=== PATIENT | female | born 1955 | race Caucasian/White ===

== ENCOUNTER 2016-12-22 12:21 | Inpatient (IN) | payer BC ==
[~2016-12-22] VITALS: Ht 165.1 cm; Wt 66.2 kg
--- NOTE | ~2016-12-22 | HP ---
Unit #: [id number] #: [id number] Patient: JAZLYN STEWART [id number] [address] [place], [place] [address] [id number] MR#: [id number] NAME: JAZLYN STEWART ROOM: 479 Age: 61 Sex: F Admission Date: 12/22/2016 : 1955 Attending Physician: Peter Colby III, M.D. Primary Care Physician: Bruce Leong M.D. HISTORY AND PHYSICAL CHIEF COMPLAINT Abdominal pain. HISTORY OF PRESENT ILLNESS This is a 61-year-old lady who has had a 2 day history of right lower quadrant pain that became very severe yesterday and she thought she was gonna . She has had numerous episodes of nausea and vomiting. She has not had any prior episodes of this type of pain. Initially she thought it was gas pain related to her IBS with diarrhea. The pain intensified and she presented to the ER today and a CT scan was done which showed probable perforated appendicitis. PAST SURGICAL HISTORY Significant for total abdominal hysterectomy in and she has had multiple joint surgeries. PAST MEDICAL HISTORY Significant for irritable bowel syndrome. MEDICATIONS Medications include Cymbalta and Lomotil as well as some vitamins. ALLERGIES She has allergies to penicillin and morphine. FAMILY HISTORY Significant for breast cancer, skin cancer and history of sarcoma. She does smoke. She denies any alcohol use. REVIEW OF SYSTEMS Negative for weight loss or jaundice and is otherwise as above. PHYSICAL EXAM VITAL SIGNS: Temperature is 98.3, heart rate is 107, respiratory rate is 18, blood pressure is 134/81. She is in no acute distress. HEENT EXAM: Pupils are equal, reactive to light and accommodation and her extraocular muscles are intact. NECK: Neck is without masses or bruits. LUNGS: Lungs show good breath sounds bilaterally with equal air exchange. CARDIAC EXAM: Shows a regular rate and rhythm without murmur. ABDOMEN: Abdomen is soft, nondistended. She has 3+ tenderness especially in the right lower quadrant with guarding. EXTREMITIES: Without edema or cyanosis. NEUROLOGIC EXAM: She is alert and oriented. There are no focal deficits. Unit #: [id number] #: [id number] Patient: JAZLYN STEWART DIAGNOSTIC STUDIES CT scan showed acute appendicitis and her white count is 19,000. OVERALL IMPRESSION This is a 61-year-old lady who likely has a ruptured acute appendicitis. We discussed proceeding with laparoscopic, possible open, appendectomy. We discussed complications such as bleeding, infection including postop abscess, need for other procedures and she understands that and wishes to proceed. Dictated by Peter Colby III, M.D. VCL/niki TD: 12/23/2016 09:11 JOB #: [id number] HISTORY AND PHYSICAL Page 1 of 1 X Peter Colby III, MD X HISTORY AND PHYSICAL
--- NOTE | ~2016-12-22 | OR ---
Unit #: [id number] #: [id number] Patient: JAZLYN STEWART [id number] [address] [place], [place] [address] [id number] MR#: [id number] NAME: JAZLYN STEWART ROOM: 479 Date of Procedure: 12/22/2016 Admission Date: 12/22/2016 Surgeon: Peter Colby III, M.D. : 1955 Attending Physician: Peter Colby III, M.D. Primary Care Physician: Bruce Leong M.D. OPERATIVE REPORT PREOPERATIVE DIAGNOSIS Acute appendicitis. POSTOPERATIVE DIAGNOSIS Acute ruptured appendicitis involving the distal half of the appendix. PROCEDURE PERFORMED Laparoscopic appendectomy. ANESTHESIA General. SPECIMENS Appendix to Pathology. COMPLICATIONS None apparent. ESTIMATED BLOOD LOSS Minimal. DRAINS One flat Timothy-Suggs drain was placed in the right lower quadrant. INDICATIONS FOR PROCEDURE This is a 61-year-old lady, who presented with 2-day history of right lower quadrant pain and findings consistent with acute appendicitis, probable perforation. She had a leukocytosis of 19,000. She is here today for laparoscopic appendectomy. DESCRIPTION OF PROCEDURE After consent was obtained, the patient was brought to the operating room and placed in the supine position. General anesthetic was administered. Her abdomen was prepped and draped in standard surgical fashion. I made a 1-cm incision just above the umbilicus. I dissected down and elevated the fascia between 2 Elder clamps. I used a Veress needle to obtain CO2 pneumoperitoneum. Next, a 5-mm trocar was placed in that location safely. I then under direct visualization placed a 12-mm port in the right lateral abdomen and a 5-mm port in the suprapubic region. She had a walled off area of her right lateral colon. As I unroofed this, there was some purulent material. The distal appendix was friable with evidence of perforation. I was able to trace this back to the origin of the appendix Unit #: [id number] #: [id number] Patient: JAZLYN STEWART off the cecum and this was relatively uninflamed. I was able to create a window at the base of the appendix and the mesoappendix. I fired a blue load of the VICENTA stapler across the base of the appendix and then was able to mobilize the mesenteric going to the appendix and afterward I could fire a white load across that. I then placed the specimen into an EndoCatch bag. It was retrieved through the right lateral port incision without dilatation of the fascia. I then used a 4x4 to mop up the murky material in the right lower quadrant. I then suctioned out all that I could see and then irrigated with 2 L of saline. At the end of the case, I placed a flat Timothy-Suggs drain in the right lower quadrant and brought it out through the suprapubic incision. I had excellent hemostasis and all needle, sponge, and instrument counts were correct x2. I removed all the trocars and released the pneumoperitoneum. All the incisions were injected with 0.25% plain Marcaine. I reapproximated the skin edges with interrupted 4-0 Vicryl subcuticular suture. Steri-Strips were then applied. The patient tolerated the procedure without any problems and returned to the recovery room in stable condition. Dictated by... Peter Colby III, M.D. VCL/lauryn TD: 12/23/2016 15:07 JOB #: [id number] CC: Mary Tesfaye M.D. OPERATIVE REPORT Page 1 of 1 X Peter Colby III, MD X PROCEDURE OPERATIVE NOTE
--- NOTE | ~2016-12-22 | DS ---
Unit #: [id number] #: [id number] Patient: JAZLYN STEWART [id number] [address] [place], [place] [address] [id number] MR#: [id number] NAME: JAZLYN STEWART ROOM: 47 Age: 61 Sex: F Admission Date: 12/22/2016 : 1955 Discharge Date: 12/25/2016 Attending Physician: Peter Colby III, M.D. Primary Care Physician: Bruce Leong M.D. DISCHARGE SUMMARY PRINCIPAL DIAGNOSIS Acute appendicitis. OPERATIVE PROCEDURE Laparoscopic appendectomy. DISCHARGE INSTRUCTIONS No heavy lifting for the next two weeks and no driving or the next five days. Keep incision dry for 24 hours. A prescription for [place] and Phenergan given, followed by Dr. Colby in 7-10 days. CHIEF COMPLAINT/HISTORY OF PRESENT ILLNESS Patient is a 61-year-old white female who presents with right lower quadrant pain. She was found on CT to have changes consistent with acute appendicitis. For complete history and physical please refer to the chart. HOSPITAL COURSE The patient was admitted and started on IV fluids and IV antibiotics. She was taken to the operating room where laparoscopic appendectomy was performed. The patient had some perforation. On postop day #3 she was awake and alert, afebrile, vital signs stable. Minimal output through her drain, which was serosanguineous. Her drain was discontinued and she was discharged home in satisfactory condition. She will be followed with Dr. Colby in 7 to 10 days. Dictated by... Archie Berger/vern TD: 12/27/2016 06:36 JOB #: [id number] CC: [facility] Mary Tesfaye M.D. Unit #: [id number] #: [id number] Patient: JAZLYN STEWART DISCHARGE SUMMARY Page 1 of 1 X Ben Stauffer MD X DISCHARGE SUMMARY
--- NOTE | ~2016-12-22 | CT2 ---
[facility] A Service of [facility] & [facility] RADIOLOGY TEXT RESULTS PATIENT: JAZLYN STEWART LOCATION: [facility] 479-01 : [birth year] UNIT #: [id number] AGE: [address]: Peter Colby III, MD SEX: F ORDER DR: [id number] [facility] [address] [facility]. [place], [place] [address] [id number] MR#: [id number] Acc #: [id number] NAME: JAZLYN STEWART : 1955 SEX: F STUDY DATE/TIME: 12/22/2016 15:31 UNIT: [facility] ROOM: STUDY DESCRIPTION: CT Abd and Pelv W Cont Attending Physician: Roney Blandon M.D. Ordering Physician: Roney Blandon M.D. Primary Care Physician: Bruce Leong M.D. MEDICAL IMAGING REPORT This report is preliminary unless electronic signature is present EXAM Abdomen and pelvis CT with contrast. INDICATIONS 61-year-old female. Symptoms since December 20. Pain extends to the right groin and leg. TECHNIQUE Contrast-enhanced CT of the abdomen and pelvis was performed. COMPARISON STUDY 03/05/2016. This CT exam was performed with one or more of the following radiation dose reduction techniques: automatic exposure control, adjustment of mA and/or kV according to patient size, and iterative reconstruction. FINDINGS Included lung bases demonstrate old healed granulomatous disease. Probable small focus of scarring in the left lower lobe unchanged. Aorta unremarkable. Spleen, adrenal glands, pancreas and gallbladder unremarkable. There are tiny low-attenuation lesions in the liver most characteristic of cysts. Some are too tiny to characterize accurately, but these are unchanged from the prior study and likely benign. No hydronephrosis of either kidney. CT PELVIS: Streak artifact from right hip surgery. Bladder unremarkable. No drainable fluid collection in the pelvis. Uterus appears to be atrophic or surgically absent. Minimal diverticulosis. There is inflammatory change in the right lower quadrant with a trace amount of fluid in the right pericolic gutter. The appendix is inflamed and dilated up to 1.4 [facility] A Service of [facility] RADIOLOGY TEXT RESULTS PATIENT: JAZLYN STEWART LOCATION: [facility] : 57 UNIT #: [id number] AGE: [address]: Peter Colby III, MD SEX: F ORDER DR: fariha. Imaging features are most characteristic of acute appendicitis. Degree of stranding and distension of the appendix with ill-defined appendiceal margins is suspicious for early appendiceal rupture, but there is no drainable fluid collection present at this time. Surgical referral recommended. Inguinal canals unremarkable. Osseous structures demonstrate spinal degenerative change. There is retrograde listhesis of L5 with respect to S1 and L4, grade 1 in degree probably related to degenerative disc disease. IMPRESSION 1. Abnormal examination. Findings are most characteristic of acute appendicitis with suspicion for early appendiceal rupture for the reasons described above. There is, however, no evidence of drainable fluid collection or abscess at this time. Surgical referral recommended. Findings called to Dr. Blandon at the time of this dictation. 2. Postop changes appearing to reflect hysterectomy. Right hip replacement. 3. Other incidental findings as described above. STAT * RESULT Dictated by... Hilario Mancia M.D. THIS IS AN ELECTRONICALLY VERIFIED REPORT Hilario Mancia M.D. at 12/22/2016 9:24 PM Leana TD: 12/22/2016 16:11 JOB #: [id number] MEDICAL IMAGING REPORT Page 1 of 1 COPY
[2016-12-22 13:22] LABS: BASOPHIL% 0.2 % (0-2.5); DIFF IND YES; EOSINOPHIL# 0.1 X10e3 (0-0.7); EOSINOPHIL% 0.4 % (0.0-7.0); HEMATOCRIT 38.8 % (35.0-45.0); HEMOGLOBIN 13.1 gm/dL (12.0-16.0); LYMPHOCYTE# 1.3 X10e3 (1.0-3.5); LYMPHOCYTE% 6.9 % (17.0-45.0); MEAN CELL VOLUME 89.9 FL (83-96); MEAN CORPUSCULAR HEMOGLOBIN 30.4 PG (28-34); MEAN CORPUSCULAR HGB CONC 33.9 g/dL (30-36); MEAN PLATELET VOLUME 8.4 FL (6.5-11.5); MONOCYTE# 1.1 X10e3 (0-1.0); MONOCYTE% 5.8 % (3.0-12.0); NEUTROPHIL# 16.7 X10e3 (1.5-7.1); NEUTROPHIL% 86.7 % (40-75); PLATELET COUNT 243 X10e3 (140-420); RED BLOOD COUNT 4.31 X10e (3.90-5.30); RED CELL DISTRIBUTION WIDTH 13.8 % (11.0-15.5); WHITE BLOOD COUNT 19.2 X10e3 (4.0-10.5)
[2016-12-22 13:37] LABS: ALBUMIN SERUM 3.8 g/dL (3.5-5.0); BILIRUBIN, DIRECT 0.1 mg/dL (0.0-0.2); BILIRUBIN,INDIRECT 0.1 mg/dL (0.0-0.9); BILIRUBIN,TOTAL 0.2 mg/dL (0.2-2.0); BUN/CREATININE RATIO 10.9; CALCIUM SERUM 9.1 mg/dL (8.4-10.2); CREATININE SERUM 1.1 mg/dL (0.6-1.4); GLOM FILT RATE Estimated 54.5 mL/min (>60); POTASSIUM 3.3 mmol/L (3.5-5.1); PROTEIN TOTAL SERUM 7.5 g/dL (6.0-8.3)
[2016-12-22 13:55] LABS: URINE SOURCE CLEAN CATCH
[2016-12-22 13:58] LABS: PLATELET ESTIMATE NORMAL (NORMAL)
[2016-12-22 13:59] LABS: RBC NORMAL YES
[2016-12-22 14:02] LABS: URINE APPEARANCE CLEAR; URINE BILIRUBIN NEG (NEG); URINE BLOOD 2+ (NEG); URINE COLOR YELLOW; URINE GLUCOSE NEG (NEG); URINE KETONE NEG (NEG); URINE LEUKOCYTE ESTERASE NEG (NEG); URINE NITRATE NEG (NEG); URINE PROTEIN TRACE (NEG); URINE SPECIFIC GRAVITY 1.008 (1.003-1.035); URINE UROBILINOGEN 0.2 MG/DL (NEG)
[2016-12-22 14:04] LABS: U HYALINE CASTS AUWI 0-2 /[LPF]; URINE BACTERIA AUWI NEG (NEGATIVE); URINE SQUAMOUS EPITHELIAL CELL NONE SEEN /[HPF]; UWBCS1 AUWI 0-2 (0-5)
[2016-12-22 14:14] LABS: CULTURE INDICATED? NO
[2016-12-22] MEDS ORDERED: DULOXETINE HCL60 MG PO (16:55)
[2016-12-22] MEDS ORDERED: VITAMIN B COMPLEX PO (16:56)
[2016-12-22] MEDS ORDERED: VITAMIN C + RO500 MG PO (16:57)
[2016-12-22] MEDS ORDERED: LOMOTIL 2.5-0.1 EACH PO (16:59)
[2016-12-22] MEDS ORDERED: EXCEDRIN EXTRA1 EAC3 PO (17:00)
[2016-12-22] MEDS ORDERED: DIPHENHYDRAMINE50 M1 PO (17:02)
[2016-12-23 03:20] LABS: BASOPHIL% 0.1 % (0-2.5); DIFF IND NO; HEMATOCRIT 35.8 % (35.0-45.0); HEMOGLOBIN 11.8 gm/dL (12.0-16.0); LYMPHOCYTE# 0.7 X10e3 (1.0-3.5); LYMPHOCYTE% 3.6 % (17.0-45.0); MEAN CELL VOLUME 90.5 FL (83-96); MEAN CORPUSCULAR HEMOGLOBIN 29.7 PG (28-34); MEAN CORPUSCULAR HGB CONC 32.9 g/dL (30-36); MEAN PLATELET VOLUME 8.4 FL (6.5-11.5); NEUTROPHIL# 18.9 X10e3 (1.5-7.1); NEUTROPHIL% 91.3 % (40-75); PLATELET COUNT 239 X10e3 (140-420); RED BLOOD COUNT 3.95 X10e (3.90-5.30); RED CELL DISTRIBUTION WIDTH 13.8 % (11.0-15.5); WHITE BLOOD COUNT 20.7 X10e3 (4.0-10.5)
[2016-12-23 03:35] LABS: CALCIUM SERUM 8.5 mg/dL (8.4-10.2); GLOM FILT RATE Estimated 61.2 mL/min (>60); POTASSIUM 3.9 mmol/L (3.5-5.1)
[2016-12-24 02:55] LABS: BASOPHIL% 0.2 % (0-2.5); EOSINOPHIL# 0.1 X10e3 (0-0.7); EOSINOPHIL% 1.4 % (0.0-7.0); HEMATOCRIT 29.4 % (35.0-45.0); HEMOGLOBIN 10.3 gm/dL (12.0-16.0); LYMPHOCYTE# 1.5 X10e3 (1.0-3.5); MEAN CORPUSCULAR HEMOGLOBIN 31.5 PG (28-34); MEAN PLATELET VOLUME 8.2 FL (6.5-11.5); MONOCYTE# 0.7 X10e3 (0-1.0); MONOCYTE% 7.5 % (3.0-12.0); NEUTROPHIL# 7.5 X10e3 (1.5-7.1); NEUTROPHIL% 75.9 % (40-75); PLATELET COUNT 198 X10e3 (140-420); RED BLOOD COUNT 3.27 X10e (3.90-5.30); RED CELL DISTRIBUTION WIDTH 13.5 % (11.0-15.5)
[2016-12-24 02:57] LABS: DIFF IND NO; WHITE BLOOD COUNT 9.9 X10e3 (4.0-10.5)
[2016-12-25 03:22] LABS: BASOPHIL% 0.5 % (0-2.5); EOSINOPHIL# 0.3 X10e3 (0-0.7); EOSINOPHIL% 3.3 % (0.0-7.0); HEMATOCRIT 31.2 % (35.0-45.0); HEMOGLOBIN 10.5 gm/dL (12.0-16.0); LYMPHOCYTE% 25.2 % (17.0-45.0); MEAN CELL VOLUME 89.7 FL (83-96); MEAN CORPUSCULAR HEMOGLOBIN 30.3 PG (28-34); MEAN CORPUSCULAR HGB CONC 33.7 g/dL (30-36); MEAN PLATELET VOLUME 8.1 FL (6.5-11.5); MONOCYTE# 0.8 X10e3 (0-1.0); MONOCYTE% 9.9 % (3.0-12.0); NEUTROPHIL# 4.9 X10e3 (1.5-7.1); NEUTROPHIL% 61.1 % (40-75); PLATELET COUNT 255 X10e3 (140-420); RED BLOOD COUNT 3.48 X10e (3.90-5.30); RED CELL DISTRIBUTION WIDTH 13.5 % (11.0-15.5); WHITE BLOOD COUNT 8.1 X10e3 (4.0-10.5)
[2016-12-25 03:23] LABS: DIFF IND NO
[2016-12-25] MEDS ORDERED: NEURONTIN100 MG PO (07:38)
[2016-12-25] MEDS ORDERED: PHENERGAN25 M1 PO (07:42)
[2016-12-25] MEDS ORDERED: HYDROCODON-ACE1 EAC7 PO (07:42)
== END 2016-12-25 09:27 | disposition home or self-care (01) | DRG 340 ==
LOC: CED 12:21 → C4C 18:15 → CED 19:08 → C4C 12-25 09:27
PROVIDERS: Emergency Medicine; Surgery
PROC: 0DTJ4ZZ Resection of Appendix, Percutaneous Endoscopic Approach (ICD-10-PCS; principal; 2016-12-22 17:00)
DX: K35.2 Acute appendicitis with generalized peritonitis (principal); J44.9 Chronic obstructive pulmonary disease, unspecified; Z88.5 Allergy status to narcotic agent; Z88.0 Allergy status to penicillin; Z90.710 Acquired absence of both cervix and uterus; F17.200 Nicotine dependence, unspecified, uncomplicated; Z80.3 Family history of malignant neoplasm of breast; K58.0 Irritable bowel syndrome with diarrhea
CPT/HCPCS: 36415; 74177; 80048; 80076; 81003; 82150; 83690; 85025; 88304; 94010; 96361; 96374; 96375; 99285; J0330; J1100; J1170; J1650; J1885; J1956; J2185; J2250; J2405; J2550; J2710; J3010; Q9967